=== PATIENT | male | born 1970 | race American Indian/Alaskan Native ===

== ENCOUNTER 2017-12-22 06:53 | Day surgery (SDC) | payer OTHER ==
[2017-12-22 07:38] LABS: Basophils # (Auto) 0.1 K/mm3 (0.0-0.1); Basophils % (Auto) 1.1 % (0.0-1.8); Eosinophils # (Auto) 0.3 K/mm3 (0.0-0.4); Eosinophils % (Auto) 4.6 % (0.0-4.3); Hematocrit 46.2 % (35.5-45.6); Hemoglobin 15.5 gm/dl (11.8-15.2); Lymphocytes # (Auto) 2.9 K/mm3 (1.2-5.4); Lymphocytes % (Auto) 42.5 % (13.4-35.0); Mean Corpuscular HGB Conc 34 % (32-34); Mean Corpuscular Hemoglobin 31 pg (28-32); Mean Corpuscular Volume 93 fl (84-94); Monocytes # (Auto) 0.8 K/mm3 (0.0-0.8); Monocytes % (Auto) 11.1 % (0.0-7.3); Platelet Count 220 K/mm3 (140-440); Red Blood Count 4.95 M/mm3 (3.65-5.03); Red Cell Distribution Width 15.1 % (13.2-15.2)
[2017-12-22 07:48] LABS: INR 0.88 (0.87-1.13)
[2017-12-22] MEDS ORDERED: ECOTRIN PO NR (08:00)
[2017-12-22] MEDS ORDERED: NACL 0.9% 500 ML 500 ML IV SCH (08:00)
[2017-12-22 08:10] LABS: BUN/Creatinine Ratio 15; Blood Urea Nitrogen 15 mg/dL (9-20); Calcium 9.3 mg/dL (8.4-10.2); Hemolysis Index 6
[2017-12-22] MEDS ORDERED: NACL 0.9% 500 ML 0 ML ONE (09:00)
[2017-12-22] MEDS: XYLOCAINE 2% INFILTRATI ONE ×2 (09:22→09:46)
[2017-12-22] MEDS: SUBLIMAZE ONE ×4 (09:22→09:49)
[2017-12-22] MEDS: VERSED ONE ×3 (09:22→09:47)
[2017-12-22] MEDS: CALAN ONE ×2 (09:23→09:47)
[2017-12-22] MEDS: HEPARIN 10,000 UNITS/10 ML ONE ×2 (09:24→09:47)
[2017-12-22] MEDS: HEPARIN/NS 5000 UNIT/500ML(CATH LAB) 1,000 ML IR ONE ×2 (09:25→09:37)
[2017-12-22] MEDS: NITROGLYCERIN SYRINGE 3 ML ONE ×3 (09:25→09:47)
--- NOTE | 2017-12-22 10:34 | Cardiac Catherization Report ---
CARDIAC CATHETERIZATION REASON FOR PROCEDURE: Aortic regurgitation, abnormal thallium stress test. PROCEDURE: The patient was prepped and draped in a sterile fashion after informed consent. The right radial cath site was prepped and draped after a negative Obdulio's test. The right radial artery was entered using Seldinger technique followed by placement of a 6-German hydrophilic sheath. Routine radial cocktail was administered via the sheath. We performed left coronary angiography using a #4 left Keyur catheter. A #4 right Keyur was used for right coronary angiography. A pigtail catheter was used for left ventricle angiography. Following this, the pigtail catheter was used for ascending aortic and root angiography. The catheters were then removed, sheath removed, and hemostasis achieved using manual compression. The patient was returned to the postprocedure unit in stable condition. There were no complications. FINDINGS: HEMODYNAMICS: Left ventricle end diastolic pressure was 24, following coronary angiography. Ascending aortic pressure was 137/64. There was no significant pressure gradient on pullback across the aortic valve. CORONARY ANGIOGRAPHY: The left main coronary artery was angiographically normal. The left anterior descending artery and its diagonal branches were angiographically normal. The circumflex artery and its obtuse marginal branches were similarly angiographically normal. The right coronary artery was dominant and also angiographically normal. The left ventricle was moderately dilated. There was moderate left ventricular systolic dysfunction, diffuse hypokinesis, left ventricular ejection fraction 35-40%. ASCENDING AORTIC AND ROOT ANGIOGRAPHY: The aortic root appeared dilated. There was 2-3+ aortic regurgitation. CONCLUSION: 1. Angiographically normal coronary arteries. 2. Moderate left ventricular systolic dysfunction, ejection fraction 35-40%. 3. Dilated aortic root. 4. 2-3+ aortic regurgitation. RECOMMENDATION: 1. Medical therapy for nonischemic cardiomyopathy. 2. Echocardiography or cardiac MRI for further assessment of the aortic root size and aortic regurgitation severity. JOB# [id number] LUCIEN/MINERVA ALDANA
[2017-12-22] MEDS ORDERED: ULTRAM PO PRN (11:06)
--- NOTE | 2017-12-22 11:09 | Discharge Summary ---
Short Stay Discharge Plan Activity: advance as tolerated Weight Bearing Status: Full Weight Bearing Diet: low fat, low cholesterol, low salt Wound: keep clean and dry Special Instructions: no heavy lifting (3 days) Follow up with: ELISEO PORTER MD [Primary Care Provider] - 7 Days
[2017-12-22] MEDS ORDERED: TYLENOL PO ONE (12:00)
[2017-12-22] MEDS ORDERED: NACL 0.9% 1000 ML 1,000 ML IV SCH (12:00)
[2017-12-22 15:08] VITALS: BP 121/64
== END 2017-12-22 14:20 | disposition home or self-care (01) ==
LOC: CATHLABREC 06:53
PROVIDERS: ATTEND Internal Medicine Cardiovascular Disease
DX: I35.1 Nonrheumatic aortic (valve) insufficiency (principal); I77.810 Thoracic aortic ectasia; K21.9 Gastro-esophageal reflux disease without esophagitis; I10 Essential (primary) hypertension; Z98.890 Other specified postprocedural states; I42.9 Cardiomyopathy, unspecified
CPT/HCPCS: 36415; 80048; 85025; 85610; 85730; 93005; 93010; 93458; 93567; 99152; 99153; C1769; C1894; J1644; J2250; J3010; J7040; Q9967